=== PATIENT | male | born 1950 | race African-American/Black ===

== ENCOUNTER 2016-12-13 19:08 | Emergency (ER) | payer OTHER ==
[~2016-12-13] VITALS: Ht 190.5 cm; Wt 73.0 kg
[~2016-12-13 19:08] MED LIST: PRED10PA2 PO; RANI150C PO; TRAM50TA PO; TRAZ100T4 PO
[2016-12-13 19:09] VITALS: BP 116/86; PULSE 93; RESP 15; TEMP 99.1; O2SAT 99
--- NOTE | 2016-12-13 19:16 | PD ---
Physical Exam Date Seen by Provider: December 13, 2016 Time Seen by Provider: 19:13 Narrative 66 YOWM STRUCK IN FACE WITH A PIPE CAUSING A FACIAL LAC. NO LOC. NO NECK PAIN. NO DENTAL INJURY. NOT UTD VSS AWAITING BED PLACEMENT Data Data Last Documented VS Vital Signs Date Time Temp Pulse Resp B/P Pulse Ox O2 Delivery O2 Flow Rate FiO2 12/13/16 19:09 99.1 93 15 116/86 99 Room Air [facility] Medical Record Reviewed: No Supervised Visit with ALBERTA: Andrew Delatorre December 13, 2016 19:16
--- NOTE | 2016-12-13 19:28 | PD ---
HPI . facial laceration just a minute ago Chief Complaint: Laceration/Skin Injury Time Seen by Provider: 19:26 Travel History International Travel<30 days: No Contact w/Intl Traveler<30days: No Traveled to known affect area: No History of Present Illness HPI 66-year-old male with history of chronic back pain here with complaints of a laceration to his face. Patient says he was working on a car when he was trying to remove the chirag and pipe came out, hitting his face. He denies any head injury, LOC or significant pain. He decided to come in just because his face bleeding would not stop. He does not recall the date of his last tetanus. 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 Reported Trazodone (Trazodone HCl) 100 Mg Tab 100 Mg PO HS Tramadol (Tramadol HCl) 50 Mg Tab 50 Mg PO Q8H PRN Review of Systems General / Constitutional: No: Fever Eyes: No: Visual changes HENT: No: Headaches Cardiovascular: No: Chest Pain or Discomfort Respiratory: No: Shortness of Breath Gastrointestinal: No: Abdominal Pain Genitourinary: No: Dysuria Musculoskeletal: No: Pain Skin: Positive Other (facial laceration ), No Rash Neurologic: No: Weakness Psychiatric: No: Depression Endocrine: No: Polydipsia Hematologic/Lymphatic: No: Easy Bruising Physical Exam Narrative GENERAL: AAO x 3, no acute distress, Well-nourished, well-developed patient. SKIN: Warm and dry. No visible rashes or bruising. small 0.4 cm laceration proximal to chin HEAD: Normocephalic and atraumatic. EYES: No scleral icterus. No injection or drainage. EOM intact, PERRLA ENT: No nasal drainage noted. Mucous membranes pink. Airway patent. small 0.5 cm laceration to inside lower lip. NECK: Supple, trachea midline. No JVD. CARDIOVASCULAR: Regular rate and rhythm without murmurs, gallops, or rubs. RESPIRATORY: Breath sounds equal bilaterally. No accessory muscle use. No rhonchi or rales. GASTROINTESTINAL: Visual inspection normal EXTREMITIES: No cyanosis or edema. BACK: Nontender without obvious deformity. No CVA tenderness. PSYCH: AAO x 3, normal affect. Data Data Last Documented VS Vital Signs Date Time Temp Pulse Resp B/P Pulse Ox O2 Delivery O2 Flow Rate FiO2 12/13/16 19:09 99.1 93 15 116/86 99 Room Air Orders Tetanus/Diphtheria Tox Adult (Tetanus/Di (12/13/16 19:30) Lidocaine 1% Inj (50 Ml) (Xylocaine 1% I (12/13/16 19:30) MDM Medical Decision Making Medical Screen Exam Complete: Yes Emergency Medical Condition: Yes Medical Record Reviewed: Yes Differential Diagnosis facial laceration, lip laceration, less likely head injury, less likely facial bone fracture Narrative Course 66-year-old male with history of chronic back pain here with complaints of a laceration to his face. Patient says he was working on a car when he was trying to remove the chirag and pipe came out, hitting his face. He denies any head injury, LOC or significant pain. He decided to come in just because his face bleeding would not stop. He does not recall the date of his last tetanus. Patient seen and examined. He has a small 0.4 cm laceration proximal to his chin just beneath his lip. On the inside lower lip he has a small 0.5 cm laceration. Patient consented to repair. The facial laceration was repaired with Dermabond. The inner lip laceration was repaired with 5-0 chromic gut. Patient tolerated the procedure well without any complications. He was advised that the suture on the inside of his lip will dissolve on its own. We discussed the signs of worsening infection and when to return to the emergency department. We have provided him with a tetanus shot. Patient verbalized understanding of instructions, questions were answered, and thanked me for their care. I advised them if their condition worsens, please return to the nearest emergency room for further care. Procedures Procedure Narrative LACERATION LOCATION: Inside of lower lip LENGTH: 0.5 cm NUMBER OF STITCHES/KATINA: 1 REPAIR: The area of the laceration was prepped with Betadine and sterilely draped. The laceration was infiltrated with 1% lidocaine. The wound was copiously irrigated and explored without evidence of foreign body, tendon injury or neurovascular injury. The wound was closed using 5-0 chromic gut. This was a single layer repair. Patient tolerated the procedure well. LACERATION LOCATION: Proximal to chin just beneath lip LENGTH: 0.4 cm NUMBER OF STITCHES/KATINA: Dermabond REPAIR: The area of the laceration was prepped with Betadine and sterilely draped. The wound was copiously irrigated and explored without evidence of foreign body, tendon injury or neurovascular injury. The wound was closed using Dermabond. This was a single layer repair. Patient tolerated the procedure well. Diagnosis Primary Impression: Lip laceration Qualified Code: S01.511A - Lip laceration, initial encounter Additional Impression: Facial laceration Qualified Code: S01.81XA - Facial laceration, initial encounter Patient Instructions: General Instructions, Laceration (ED) Additional Instructions: [place] for worsening signs of infection which include fever, increased redness , increased warmth, purulent drainage, increased swelling or streaking. If any of these develop, please go to the nearest emergency room. The suture placed on the inside of her lip will dissolve on its own. The skin glue on the outside near chin will eventually disappear. Try to keep this area dry for the next 2-3 days. You may experience tenderness at the site of your tetanus shot. This is normal. Med/Other Pt SpecificInfo: No Change to Meds Disposition: 01 DISCHARGE HOME Condition: Stable Elin Yancey December 13, 2016 19:28
[2016-12-13] MEDS: LIDOCAINE HCL 1% 50 ML VIAL INFIL ONE (19:46)
[2016-12-13] MEDS: TETANUS/DIPHTHERIA TOXOID ADULT 0.5 ML VIAL IM ONE (19:46)
== END 2016-12-14 02:05 | disposition home or self-care (01) ==
LOC: NEPK 19:08
DX: S01.511A Laceration without foreign body of lip, initial encounter (principal); S01.81XA Laceration without foreign body of other part of head, initial encounter; W22.8XXA Striking against or struck by other objects, initial encounter; Z72.0 Tobacco use
CPT/HCPCS: 12011; 90471; 90714